=== PATIENT | male | born 1965 | race Caucasian/White ===

== ENCOUNTER 2022-04-14 11:27 | Emergency (ER) | payer BC, SELFPAY ==
--- NOTE | 2022-04-14 11:32 | ED.EXTPRO ---
HPI - Extremity Problem General Chief complaint: Back Pain/Injury Stated complaint: right hip pain Time Seen by Provider: 04/14/22 11:36 Source: patient, family and RN notes reviewed Mode of arrival: ambulatory Limitations: no limitations History of Present Illness HPI Narrative: 56-year-old male presents to the [facility] for right hip pain for the last 2 weeks. Has seen a chiropractor with the pain in the right hip, lower back is not getting any better. Denies any saddle anesthesia. No numbness or tingling in EXTR. No loss or retention of bowel or bladder. Denies midline tenderness. Pain is worse with movement, squatting down. Denies chest pain or abdominal pain. No fevers. No redness or inflammation noted Onset (ago): week(s) (2) Related Data Allergies Allergy/AdvReac Type Severity Reaction Status Date / Time No Known Allergies Allergy Verified 04/14/22 11:29 Review of Systems Review of Systems: All systems reviewed & are unremarkable except as noted in HPI and below Constitutional: Constitutional: Reports no additional constitutional complaints and Denies weakness Eyes: Eyes: Reports no additional eye complaints ENT: Reports system reviewed and no additional complaints, except as documented Cardiovascular: Cardiovascular: Reports no additional cardiovascular complaints and Denies chest pain Respiratory: Respiratory: Reports no additional respiratory complaints Gastrointestinal: Gastrointestinal: Reports no additional gastrointestinal complaints and Denies abdominal pain Musculoskeletal: Musculoskeletal: Reports as per HPI, Reports back pain (Right lower), Denies arthralgias, Denies joint swelling and Denies numbness Integumentary/Breasts: Skin/Breast: Reports system reviewed and no additional complaints, except as docu Neurologic: Reports system reviewed and no additional complaints, except as documented, Denies focal weakness, Denies numbness and Denies weakness Psychiatric: Psychiatric: Reports no additional psychiatric complaints Allergic/Immunologic: Allergic/Immunologic: Reports no additional allergic/immunologic complaints PMFSH Past Medical History Medical History Patient denies medical problems Surgical History Surgical History (Updated 04/14/22 @ 19:13 by Karine Howard APRN) No pertinent past surgical history Social History Social History (Updated 04/14/22 @ 19:13 by Karine Howard APRN) Gender identity (if verbalized by the patient): Male Comments At the time of my signature, I reviewed and agree with the nursing past medical, surgical, social, and family history. There is no relevant family history pertinent to the patient complaint. Exam Const: General: healthy appearing, no acute distress and alert Nutritional Appearance: well nourished Orientation/consciousness: patient oriented x3 Limitations: no limitations HENMT: Head: normal to inspection Eyes: Pupils: Equal, round and reactive pupils present Neck: Neck: normal visual inspection, no lymphadenopathy and no meningeal signs Chest: Chest palpation & inspection: normal inspection of the chest Resp: Effort & Inspection: normal respiratory effort and no use of accessory muscles Auscultation: clear to auscultation bilaterally, no crackles, no rales, no rhonchi and no wheezes Cardio: Rate: regular rate Rhythm: regular rhythm GI: GI Palp: Yes Soft to palpation, No Tenderness to palpation present (GI) and No Guarding due to palpation present (GI) Back/Spine/Pelvis: Back: no CVA tenderness Cervical Spine: normal cervical lordosis, cervical ROM normal and No Cervical spine tenderness Thoracic/Lumbar Spine: thoracic and lumbar spine normal to inspection, No thoraco-lumbar spasm, No thoracic spinal tenderness and No lumbar spinal tenderness Pelvis: no pain with anterior-posterior compression and no pain with lateral compression Sacrum: no ecchymosis, no erythema, no swel
[2022-04-14 11:36] VITALS: BP 149/106; PULSE 96; RESP 16; TEMP 37.2; O2SAT 99
== END 2022-04-14 11:48 | disposition home or self-care (01) ==
PROVIDERS: Emergency Provider Nurse Practitioner
DX: M54.31 Sciatica, right side (principal)
CPT/HCPCS: 99213; G0463

== ENCOUNTER → 2022-04-17 14:21 | Outpatient (CLI) | payer BC, SELFPAY ==
--- NOTE | ~2022-04-17 | XR_ITS ---
XR lumbar spine 2-3V 04/17/2022 14:35 Indication: Sciatica Procedure: 3 views lumbar spine Comparison: 07/05/2017 Findings: There is mild multilevel lumbar facet hypertrophy. Vertebral body heights are maintained. N o fracture, subluxation or dislocation. Prominent bridging osteophyte at L4-5. No evidence for spondy lolisthesis. Mild levocurvature of the lumbar spine. Pedicles intact. Sacral foramen are symmetric. Impression: 1: Mild lumbar spondylosis. Reviewed, dictated and finalized at location A. Impression: 1: Mild lumbar spondylosis.
== END ==
PROVIDERS: PCP Family Medicine; Visit Provider Family Medicine
DX: M47.816 Spondylosis without myelopathy or radiculopathy, lumbar region (principal)
CPT/HCPCS: 72100

== ENCOUNTER 2025-03-20 16:37 | Outpatient (CLI) | payer BC, SELFPAY ==
--- OUTSIDE RECORDS SUMMARY | 2025-03-20 16:42 | XMS_ITS | Clinical Summary ---
Author Organization [facility] [employer] Address [address] [place] [address] Care Team Providers Care Director Targeted Marketing Name Role Phone Xin Traore Shawn Primary Care Provider Source Comments [facility],non-owned Affiliates and Associated Physician Practices is amultiple site organization consisting of ambulatory clinics and hospital sitesin [place], [place], [place] and [place]. This disclosure is being madepursuant to the Care Everywhere program and may not contain all information available regarding this patient. Last updated 18.[facility] Allergies No known active allergies Medications * Be aware that medications may not be up to date on this document. Alwaysverify current medications with the patient. Blood Glucose Monitoring Suppl (Blood Glucose Monitor System) w/Device KITIndications: Type 2 diabetes mellitus without complication, without long-term current use of insulin (HCC) Use 1 Each as directed 1 Each 12/15/2024 Active blood glucose test stripIndication s:Diabetes Mellitus Reasons: Diabetes 100 strip 1 12/15/2024 Active lancetsIndicati ons:Diabetes Mellitus Reasons: Diabetes 100 Each 1 12/15/2024 Active aspirin (Aspirin) 81 MG chew tablet Take 1 (one) tablet by mouth once daily for 90 days 30 tablet 2 12/16/2024 Active atorvastatin (Lipitor) 80 MG tablet Take 1 (one) tablet by mouth at bedtime for 90 days 30 tablet 2 12/15/2024 Active Active Problems Problem Noted Date Diagnosed Date Type 2 diabetes mellitus wit hout complication, without long-term current use of insulin 12/15/2024 Brainstem infarct, acute 12/12/2024 Resolved Problems Problem Noted Date Diagnosed Date Resolved Date Dysarthria 12/12/2024 12/15/2024 Numbness and tingling of left side of face 12/12/2024 12/15/2024 Nausea and vomiting 12/12/2024 12/15/19 Diplopia 12/12/2024 12/15/2024 Encounters Date Type Department Care Team Description 03/01/2025 1:10 AM CDT Clinical Support [facility] - Cardiology [address] [address] Brainstem infarct, acute (HCC) 02/22/2025 2:57 PM CDT - 02/22/2025 11:59 PM CDT Hospital Encounter [facility] [address] [place] [address] Violeta Mojica PA-C Discharge Disposition: Home or Self Care 02/22/2025 Travel 01/25/2025 1:10 AM CDT Clinical Support [facility] - Cardiology [address] [address] Brainstem infarct, acute 01/22/2025 10:00 AM CDT Office Visit [facility] - Neurology [address] [facility] [place] [address] Violeta Mojica PA-C Cerebrovascular accident (CVA), unspecified mechanism (Primary Dx); PFO (patent foramen ovale); Primary hypertension; Type 2 diabetes mellitus without complication, without long-term current use of insulin 01/22/2025 Travel 01/17/2025 Transitional Care [facility] [address] [place] [address] Justina Andre RN Transitions Of Care from Last 3 Months Social History Tobacco Use Types Packs/Day Years Used Date Smoking Tobacco: Never Smokeless Tobacco: Never Tobacco Cessation:Counseling Given: Not Answered Alcohol Use Standard Drinks/Week Comments Never 0 (1 standard drink = 0.6 oz pur e alcohol) AUDIT-C Answer Date Recorded Q1: How often do you have a drink containing alcohol? Never 12/12/2024 Q2: How many drinks containi ng alcohol do you have on a typical day when you are drinking? Patient does not drink Q3: How often do you have si x or more drinks on one occasion? Never 12/12/2024 Sex and Gender Information Value Date Recorded Sex Assigned at Not on file Legal Sex Male 5:52 AM OPTICAL ENGINEERING MANAGER Gender Identity Not on file Sexual Orientation Not on file Last Filed Vital Signs Vital Sign Reading Time Taken Comments Blood Pressure 131/79 01/22/2025 10:04 AM CDT Pulse 91 01/22/2025 10:04 AM CDT Temperature 36.1 C (97 F) 12/15/2024 7:39 AM OPTICAL ENGINEERING MANAGER Respiratory Rate 14 01/22/2025 10:04 AM CDT Oxygen Saturation 100% 12/15/2024 11:26 AM OPTICAL ENGINEERING MANAGER Inhaled Oxygen Concentration - - Weight 87.5 kg (193 lb) 01/22/2025 10:04 AM CDT Height 177.8 cm (5' 10 ) 01/22/2025 10:04 AM CDT Body Mass Index 27.69 01/22/2025 10:04 AM CDT Plan of Treatment Upcoming Encounters Date Type Department Care Team (Late st Contact Info) Description 04/05/2025 1:10 AM CDT Clinical Support [facility] - Cardiology [address] [place] [phone] 05/10/2025 1:10 AM CDT Clinical Support [facility] [address] [address] 07/30/2025 3:00 PM CDT Office Visit [facility] - Neurology [address] [place] [address], [place] [address] Violeta Mojica PA-C [address] [place] [address] [address] [place] [id number] Health Maintenance Due Date Last Done Comments COLOGUARD (AGES 45-75) - COLON CA SCREENING 1964 COLON MONITORING 1964 COLONOSCOPY - COLON CA SCREENING 1964 CT COLONOGRAPHY - COLON CA SCREENING 1964 Colorectal Cancer Screening 1964 FIT - COLON CA SCREENING 1964 FLEX SIG - COLON CA SCREENING 1964 HIV SCREENING 1979 HEPATITIS C SCREENING 11/02/1982 DTAP/TDAP/TD VACCINES (1 - Tdap) 1983 PNEUMOCOCCAL VACCINE 50+ (1 of 2 - PCV) 1983 DIABETES-STATIN 2004 ZOSTER VACCINE (1 of 2) 2014 COVID-19 VACCINE (1 - season) 2024 Respiratory Syncytial Virus (RSV) Vaccine Pt: or over 60 yrs (1 - Risk 60-74 years 1-dose series) 2024 DEPRESSION SCREENING 11/15/2024 DIABETES - URINE PROTEIN SCREENING 11/15/2024 DIABETES RETINOPATHY SCREENING 12/15/2024 DIABETES-FOOT EXAM WITH MONOFILAMENT 12/15/2024 DIABETES-HGB A1C 06/11/2025 12/12/2024 INFLUENZA VACCINE (Season Ended) 2025 DIABETES-SERUM CREATININE 12/15/20252024, 12/14/2024, 12/13/2024, Additional history exists HEPATITIS B VACCINE Aged Out No longe r eligible based on patient's age to complete this topic HIB VACCINE Aged Out No longer eligi ble based on patient's age to complete this topic HPV VACCINE Aged Out No longer eligi ble based on patient's age to complete this topic MENINGOCOCCAL (Group B) VACCINE SHARED DECISION-MAKING Aged Out No longer eligible based on patient's age to complete this topic MENINGOCOCCAL GROUPS A/C/Y/W VACCINE Aged Out No longer eligible based on patient's age to complete this topic Medical Devices Implanted Type Area Die Maker Stamping Device Identifier Shelf Expiration Date Model / Serial / Lot Rcdr Crd Linq Ii Ins - [id number] Implanted:Qty: 1 on 12/15/2024 by Gino Leblanc MD at [facility] [employer] [id number] 04/03/2026 [id number] / [id number] / [id number] Procedures Procedure Name Priority Date/Time Associated Diagnosis Comments OK ILR DEVICE INTERROGAT REMOTE Routine 03/11/2025 2:08 PM CDT Brainstem infarct, acute (HCC) CARDIAC PROCEDURE ORDER 02/25/2025 VAS BILATERAL VENOUS DUPLEX LE Routine 02/22/2025 3:36 PM CDT Cerebrovascular accident (CVA), unspecified mechanism (HCC) OK ILR DEVICE INTERROGAT REMOTE Routine 02/07/2025 12:26 AM CDT Brainstem infarct, acute CARDIAC PROCEDURE ORDER 01/21/2025 BASIC METABOLIC PANEL (CALCIUM TOTAL) Routine 12/15/2024 1:09 AM OPTICAL ENGINEERING MANAGER Dysarthria HEMOGLOBIN A1C Add on 12/12/2024 7:47 AM OPTICAL ENGINEERING MANAGER Dysarthria from Last 3 Months or Most Recently Relevant to Health Maintenance Results * OK ILR DEVICE INTERROGAT REMOTE (03/11/2025 2:08 PM CDT) Narrative Kristian Vargas MD - 03/11/2025 2:08 PM CDT Kristian Vargas MD 03/11/2025 2:08 PM Dear Ammon Maria, I reviewed the remote interrogation of your loop recorder. Your device's sensing is appropriate and stable. During this most recent monitored period ending on 02/25/2025 your atrial fibrillation/tachycardia burden was 0% and you had no significant arrhythmias. Device function is normal, no programming changes are required, and no medications will need to be changed. Please call our offices if you have any further questions. Sincerely, Kristian Vargas 03/11/2025 us Kristian Vargas MD PROCEDURE/MINOR SURGICAL ORDERAB LES Final Result * CARDIAC PROCEDURE ORDER (02/25/2025) Only the most recent of2 resultswithin the time period is included. Narrative 02/25/2025 Ordered by an unspecified provider. us Scanned Document CARDIAC SERVICES ORDERABLES Fin al Result * VAS Bilateral Venous Duplex Le (02/22/2025 3:36 PM CDT) Anatomical Region Laterality Modality Lower Extremity Intravascular Ul trasound 02/22/2025 2:59 PM CDT Narrative Procedure Note Clint De Dios MD - 02/22/2025 us Violeta Mojica PA-C VASCULAR LAB ORDERABLES E dited Result - Final * OK ILR DEVICE INTERROGAT REMOTE (02/07/2025 12:26 AM CDT) Narrative Kristian Vargas MD - 02/07/2025 12:26 AM CDT Kristian Vargas MD 02/07/2025 12:26 AM Dear Ammon Maria, I reviewed the remote interrogation of your loop recorder. Your device's sensing is appropriate and stable. During this most recent monitored period ending on 01/21/2025 your atrial fibrillation/tachycardia burden was 0% and you had no significant arrhythmias. Device function is normal, no programming changes are required, and no medications will need to be changed. Please call our offices if you have any further questions. Sincerely, Kristian Vargas 02/07/2025 Kristian Vargas MD PROCEDURE/MINOR SURGICAL ORDERAB LES Final Result * (ABNORMAL) BASIC METABOLIC PANEL (CALCIUM TOTAL) (12/15/2024 1:09 AM OPTICAL ENGINEERING MANAGER) BUN 10 7 - 26 mg/dL 12/15/2024 2:57 AM [facility] Creatinine 0.86 0.71 - 1.16 mg/dL 12/15/2024 2:57 AM [facility] Sodium 141 136 - 145 mmol/L 12/15/2024 2:57 AM [facility] Potassium 3.8 3.5 - 4.5 mmol/L 12/15/2024 2:57 AM [facility] Chloride 106 98 - 107 mmol/L 12/15/2024 2:57 AM [facility] CO2 23 22 - 29 mmol/L 12/15/2024 2:57 AM [facility] Glucose 111(H) 70 - 99 mg/dL 12/15/2024 2:57 AM [facility] Calcium 9.3 8.4 - 10.2 mg/dL 12/15/2024 2:57 AM [facility] Anion Gap 12 6 - 16 12/15/2024 2:57 AM [facility] BUN/Creatinine Ratio 12 7 - 23 12/15/2024 2:57 AM [facility] Osmolality Calculated 292 275 - 295 mOsm/kg 12/15/2024 2:57 AM [facility] eGFR by CKD-EPI >90 >=90 mL/min/1.7 3 m2 12/15/2024 2:57 AM [facility] Blood BLOOD SPECIMEN / Unknown Lab Venipuncture / Unknown 12/15/2024 1:09 AM OPTICAL ENGINEERING MANAGER 12/15/2024 1:37 AM [facility] us Nilay Everett MD LAB - CHEMISTRY ORDERABLES Fin al Result [facility] [address] [place] [address], [facility] [phone] * (ABNORMAL) HEMOGLOBIN A1C (12/12/2024 7:47 AM [facility]) Hemoglobin A1c 6.8(H) <=5.6 % 12/13/2024 10:16 AM [facility] Estimated Average Glucose 148 mg/dL 12/13/2024 10:16 AM [facility] Comment: HbA1c Interpretation: Normal : < 5.7% Pre-diabetes: 5.7-6.4% Diabetes: Equal to or greater than 6.5% Test results diagnostic of diabetes should be repeated for confirmation. Treatment target values recommended by ADA and other clinical organizations should be used to evaluate metabolic control in patients. Reference: [place] Diabetes Association, Standards of Care in Diabetes -2020 In patients 70 years and older consider HbA1c target range of 7.0-7.5% (Reference: Wagner Ramos et al. JAMDA. 2012) The Sebia assay for the measurement of HbA1c is a National Glycohemoglobin Standardization Program (NGSP) certified method. Blood BLOOD SPECIMEN / Unknown Venipuncture / Unknown 12/12/2024 7:47 AM OPTICAL ENGINEERING MANAGER 12/12/2024 7:56 AM OPTICAL ENGINEERING MANAGER us Nilay Everett MD LAB - CHEMISTRY ORDERABLES Fin al Result [facility] [address] [place] [address], [place] [phone] from Last 3 Months or Most Recently Relevant to Health Maintenance Insurance ANTHEM Advance Directives * Full Code (Latest Code Status on File) Date Activated Date Inactivated Comments 12/12/2024 7:53 AM 12/15/2024 3:06 PM Care Teams Director Targeted Marketing Relationship Specialty Start Date End Date Xin Traore [address] [place] [address] PCP - General 01/22/25
[2025-03-20 17:08] LABS: Hemoglobin 14.8 g/dL (14.0-18.0); Mean Corpuscular HGB Conc 33.6 g/dl (32-36); Mean Corpuscular Hemoglobin 30.9 pg (26-34); Mean Corpuscular Volume 91.9 fl (80-100); Mean Platelet Volume 9.6 fl (7.4-10.4); Platelet Count Result 233 k/mm3 (150-375); Red Blood Count 4.79 M/mm3 (4.6-6.20); Red Cell Distribution Width 12.9 % (11.5-14.5); White Blood Count 12.9 K/mm3 (4.5-10.0)
[2025-03-20 17:16] LABS: Hemoglobin A1C 5.9 % (<5.7)
[2025-03-20 17:19] LABS: Alanine Aminotransferase 70 U/L (6-50); Albumin Level 4.4 g/dL (3.5-5.1); Alkaline Phosphatase 142 U/L (38-126); Anion Gap 10 mmol/L (4-12); Aspartate Amino Transferase 44 U/L (17-59); Bilirubin,Total 1.2 mg/dL (0.2-1.3); Blood Urea Nitrogen 16 mg/dL (9-20); Calcium 9.1 mg/dL (8.4-10.2); Carbon Dioxide 27 mmol/L (22-30); Chloride 105 mmol/L (98-107); Cholesterol 121 mg/dL (0-200); Estimated Glomerular Filt Rate > 60; Glucose 93 mg/dL (65-110); HDL Direct 39 mg/dL; Potassium 3.7 mmol/L (3.4-5.0); Sodium 142 mmol/L (137-145); Triglycerides 113 mg/dL (<150)
[2025-03-20 17:26] LABS: Creatinine Urine 206.1 mg/dL
[2025-03-20 17:30] LABS: LDL Cholesterol Direct 49 mg/dL; MALB Creatinine Ratio 6.2 mg/g (0-30); Microalbumin Urine Random 12.8 mg/L (0-16.7)
== END 2025-03-20 16:38 | disposition home or self-care (01) ==
LOC: ANHLAB 16:40
PROVIDERS: PCP Nurse Practitioner Family; Visit Provider Nurse Practitioner Family
DX: I63.9 Cerebral infarction, unspecified (principal); E78.5 Hyperlipidemia, unspecified; E11.9 Type 2 diabetes mellitus without complications
CPT/HCPCS: 36415; 80053; 80061; 82043; 83036; 85027